=== PATIENT | female | born 2000 | race Hispanic/Latino ===

== ENCOUNTER 2019-02-06 13:13 | Emergency (ER) | payer OTHER ==
[~2019-02-06] VITALS: Ht 160 cm; Wt 69.4 kg
[2019-02-06 13:14] VITALS: BP 131/74
[2019-02-06] MEDS ORDERED: LIDOCAINE 5% (LIDODERM) PATCH TD ONE (14:00)
[2019-02-06] MEDS ORDERED: LIDO5DIS41 TD (14:02)
[2019-02-06] MEDS ORDERED: **NOTE PATIENT COMMENT** MISC XX SCH (21:00)
== END 2019-02-06 14:08 | disposition home or self-care (01) ==
LOC: M ED 13:13
DX: G89.29 Other chronic pain (principal); M25.512 Pain in left shoulder

== ENCOUNTER 2019-03-04 13:21 | Emergency (ER) | payer OTHER ==
[~2019-03-04] VITALS: Ht 160 cm; Wt 71.4 kg
[~2019-03-04 13:21] MED LIST: LIDO5DIS41 TD
[2019-03-04 13:22] VITALS: BP 129/79
[2019-03-04] MEDS ORDERED: CLAR5TAB7 PO (15:52)
[2019-03-04] MEDS ORDERED: AUGM875T28 PO (15:52)
== END 2019-03-04 16:14 | disposition home or self-care (01) ==
LOC: M ED 13:21
DX: J01.90 Acute sinusitis, unspecified (principal)

== ENCOUNTER → 2019-06-04 | Outpatient (CLI) | payer OTHER ==
[~2019-06-04] MED LIST changes: +AUGM875T28 PO; +CLAR5TAB7 PO; +METHACHOLINE KIT (J7674) INH ONE
== END ==
LOC: M CARPUL 08:36
PROVIDERS: ATTEND Nurse Practitioner Family
DX: R05 Cough (principal)

== ENCOUNTER → 2019-06-20 | Outpatient (CLI) | payer OTHER ==
--- NOTE | 2019-06-20 08:37 | PFTRPT ---
Height: 63.00 Inches Weight: 159.00 Lbs BSA: 1.75 Diagnosis: R05 DATE OF PROCEDURE: 06/20/2019 ORDERED BY: Yamile Donald INTERPRETATION: Study of excellent technical quality. Under protocol, methacholine was administered. At a dose of 2.5 mg (13.875 CDUs), a 44% decline in the FEV1 was noted. PC of 0.62 is significant. Flow rates did return to baseline post bronchodilator administration. IMPRESSION: Positive methacholine challenge study. MTDD
--- NOTE | 2019-06-20 09:46 | REP ---
PA and lateral chest: There are no comparisons. The lung stein are clear. The cardiac size is normal. The arturo, mediastinum, and skeletal structures are unremarkable. Impression: Negative PA and lateral chest. Electronically Signed by Willie Hernandez MD 06/20/2019 09:38 A
== END ==
LOC: M CARPUL 07:40
PROVIDERS: ATTEND Nurse Practitioner Family
DX: R05 Cough (principal); R06.00 Dyspnea, unspecified
CPT/HCPCS: 71046; 94070; J7674